=== PATIENT | female | born 2000 | race Caucasian/White ===

== ENCOUNTER 2021-08-04 12:45 | Emergency (ER) | payer OTHER ==
[2021-08-05 14:37] LABS: SARS-CoV-2 PCR by NAA DETECTED (NotDetected)
== END 2021-08-04 14:10 | disposition home or self-care (01) ==
LOC: CSHERS 12:45
DX: U07.1 COVID-19 (principal); G43.909 Migraine, unspecified, not intractable, without status migrainosus; F17.290 Nicotine dependence, other tobacco product, uncomplicated; Z79.899 Other long term (current) drug therapy
CPT/HCPCS: 99284; U0003; U0005